=== PATIENT | female | born 1930 | race Caucasian/White ===

== ENCOUNTER 2016-09-24 08:40 | Emergency (ER) | payer OTHER ==
[2016-09-24 09:01] VITALS: BP 163/98; PULSE 77; RESP 20; TEMP 98.1; O2SAT 95
--- NOTE | 2016-09-24 09:05 | UCPHY ---
H & P Time Seen by Provider: 09/24/16 08:47 Patient Type: Established HPI/ROS: 86-year-old female with a history of deep vein thrombosis on long-term anticoagulant presents complaining of runny nose with clear mucus and mild sore throat. She also states that she needs a PT PTT INR drawn today. No difficulty swallowing, no pain with swallowing no headache no chest pain no shortness of breath. She is mostly concerned because her is on oxygen and she is afraid she might get him ill. She also states it is impossible to get an appointment with her primary care physician. Review of systems As per HPI General no fever no chills no weakness HEENT no eye pain no eye discharge. No eye redness, minimal sore throat Respiratory no cough, no shortness of breath Cardiac no chest pain, no peripheral edema GI no abdominal pain, no diarrhea, no constipation, no nausea, no vomiting no flank pain, no hematuria, no dysuria Musculoskeletal no myalgias, no joint pain Heme no easy bruising, no easy bleeding Endo no polyuria, no polydipsia Skin no rashes, no pruritus Neuro no syncope, no dizziness, no headaches Psych is no suicidal ideation, no homicidal ideation Past Medical/Surgical History: Hypertension Hyperlipidemia Deep vein thrombosis on long-term anticoagulants Social History: Lives at a assisted living with her Smoking Status: Never smoked Physical Exam: 86-year-old female Alert and oriented nontoxic appearance, no acute distress afebrile Atraumatic normocephalic Extraocular muscles intact, anicteric Nares mild clear discharge Oropharynx mild erythema no tonsillar swelling no exudate no uvular deviation, tolerating own secretions Neck supple no lymphadenopathy Lungs clear to auscultation bilaterally Heart regular rate and rhythm Abdomen normoactive bowel sounds soft nontender Extremities no cyanosis clubbing or edema Skin no rash Constitutional: Initial Vital Signs Temperature (C) 36.7 C 09/24/16 08:59 Heart Rate 77 09/24/16 08:59 Respiratory Rate 20 09/24/16 08:59 Blood Pressure 163/98 H 09/24/16 08:59 O2 Sat (%) 95 09/24/16 08:59 O2 Delivery Mode Room Air Allergies/Adverse Reactions: Sulfa (Sulfonamide Antibiotics) Allergy (Intermediate, Verified 09/24/16 08:56) Rash hydrocodone [Hydrocodone] Allergy (Verified 09/24/16 08:56) Home Medications: Medication Instructions Recorded ALENDRONATE SODIUM 09/24/16 Atorvastatin Calcium 09/24/16 LISINOPRIL/HYDROCHLOROTHIAZIDE 09/24/16 Warfarin Sodium 09/24/16 Medical Decision Making ED Course/Re-evaluation: Patient seen and evaluated for clear runny nose and mild sore throat Physical exam benign Impression URI Plan Return to assisted living Follow up with primary care as needed Will send PT PTT INR to be followed by primary care. Departure - Departure Disposition: Home, Routine, Self-Care Clinical Impression: URI (upper respiratory infection) Condition: Good Instructions: Upper Respiratory Infection (ED) Referrals: Can Benitez DO [Primary Care Provider] - As per Instructions - PQRS PQRS Measurement: 134: Depression screening and followup, PRIME MD-PHQ2 (12 years and older) Over the last 2 weeks, how often have you been bothered by any of the following problems? 1. Feeling down, depressed, or hopeless? 2. Little interest or pleasure in doing things? Patient answered no to both 1 and 2 130: Documentation of medications. Reviewed all patient medications, doses, route and frequency. 226: Do you smoke? No. 47: 65 and older: Advanced care planning. Patient designates surrogate decision maker as spouse.. [Patient has advanced directive.] 51: 18 years old and older with diagnosis of COPD, spirometry performance. [Patient has no history of COPD 52: 18 years old and older with COPD and symptoms of COPD or FEV1<60% predicted prescribed a B Agonist. [Spirometry not performed; equipment not available.]
== END 2016-09-24 09:12 | disposition home or self-care (01) ==
LOC: CED 08:40
DX: J06.9 Acute upper respiratory infection, unspecified (principal); I10 Essential (primary) hypertension; E78.5 Hyperlipidemia, unspecified; Z86.718 Personal history of other venous thrombosis and embolism; Z79.01 Long term (current) use of anticoagulants; Z88.2 Allergy status to sulfonamides
CPT/HCPCS: 99213-PO; G0463-PO

== ENCOUNTER → 2016-11-25 | Outpatient (CLI) | payer OTHER | LOC: CIMAGING 13:20 | PROVIDERS: ATTEND Family Medicine | DX: R92.8 Other abnormal and inconclusive findings on diagnostic imaging of breast (principal) | CPT/HCPCS: G0206 ==

== ENCOUNTER → 2017-05-27 | Outpatient (CLI) | payer OTHER | LOC: CIMAGING 09:02 | PROVIDERS: ATTEND Family Medicine | DX: Z12.31 Encounter for screening mammogram for malignant neoplasm of breast (principal) | CPT/HCPCS: G0202 ==